=== PATIENT | female | born 1965 | race Caucasian/White ===

== ENCOUNTER 2022-06-02 04:36 | Observation (INO) | payer OTHER ==
[2022-06-02] MEDS ORDERED: morphine SULFATE 4 MG/ML VIAL IVPUSH ONE (06:10)
[2022-06-02 06:42] LABS: ALBUMIN 4.1 g/dl (3.4-5.0); ALK PHOS 124 U/L (45-117); BILIRUBIN,TOTAL 0.5 mg/dL (0.2-1); BLOOD UREA NITROGEN 26.2 mg/dL (7-18); CALCIUM 9.7 mg/dL (8.5-10.1); CHLORIDE 102 mmol/L (98-107); CO2 26 mmol/L (21-32); CREATININE 1.2 mg/dL (0.55-1.3); GLUCOSE,RANDOM 247 mg/dL (74-106); LIPASE 78 U/L (73-393); SGOT/AST 29 U/L (15-37); SGPT/ALT 30 U/L (13-61); SODIUM 139 mmol/L (136-145); TOT PROT 7.8 g/dl (6.4-8.2)
[2022-06-02 06:59] LABS: VENOUS BASE EXCESS -1.3 mmol/L (-2-2); VENOUS O2 SATURATION 39.5 % (70-80); VENOUS PCO2 50.8 mmHg (38-52)
[2022-06-02 07:01] LABS: VENOUS PH 7.319 (7.310-7.410)
[2022-06-02 07:14] LABS: HEMOGLOBIN 14.7 GM/dL (10.7-15.3); MCH 25.6 pg (25.7-33.7); MEAN PLT VOLUME 10.2 fl (7.5-11.1); PLATELET COUNT 376 10^3/uL (134-434); RBC 5.75 M/mm3 (3.60-5.2); RDW 13.8 % (11.6-15.6); WHITE BLOOD COUNT 20.4 K/mm3 (4.0-10.0)
[2022-06-02 08:52] LABS: ANISOCYTOSIS 0; HELMET CELLS 0; HOWELL-JOLLY BODIES 0; MACROCYTOSIS 0; OVALOCYTE 0; ROULEAU 0; SICKELED CELLS 0; TARGET CELLS 0; TEAR DROP CELLS 0; TOXIC GRANULATION 0
[2022-06-02 09:40] LABS: PH,URINE 5.5 (5.0-8.0); URINE APPEARANCE CLEAR; URINE BILIRUBIN NEGATIVE (NEGATIVE); URINE COLOR YELLOW; URINE KETONE NEGATIVE (NEGATIVE); URINE PROTEIN NEGATIVE (NEGATIVE); URINE UROBILINOGEN 0.2 mg/dL (0.2-1.0)
[2022-06-02 09:41] LABS: URINE LEUK ESTERASE NEGATIVE (NEGATIVE); URINE NITRITE NEGATIVE (NEGATIVE)
[2022-06-02] MEDS ORDERED: DEXTROSE 5%-0.45% SALINE 1,000 ML IV SCH (10:15)
[2022-06-02] MEDS ORDERED: ONDANSETRON 4 MG/2 ML VIAL IVPUSH PRN (12:10)
[2022-06-02] MEDS ORDERED: DEXTROSE 5%-LACTATED RINGERS 1,000 ML IV SCH (12:15)
[2022-06-02] MEDS ORDERED: ACETAMINOPHEN 1000 MG/100 ML BAG IVPB PRN (12:20)
[2022-06-02] MEDS ORDERED: SODIUM CHLORIDE 0.45% 1,000 ML IV SCH (13:15)
[2022-06-02] MEDS: ENOXAPARIN NA (PORCINE) 40 MG/0.4 ML DISP.SYRIN SQ SCH (15:20)
[2022-06-02 16:11] VITALS: BMI 27.8
[2022-06-02] MEDS: INSULIN SLIDING SCALE (NOVOLOG) 1 VIAL SQ SCH ×2 (16:31→23:08)
[2022-06-02] MEDS ORDERED: CEFTRIAXONE 1 GM in DEXTROSE 5%-WATER - 50 ML IVPB ONE (16:37)
[2022-06-02 21:15] VITALS: RESP 20
[2022-06-03] MEDS: INSULIN SLIDING SCALE (NOVOLOG) 1 VIAL SQ SCH ×2 (07:09→12:20)
[2022-06-03] MEDS: ENOXAPARIN NA (PORCINE) 40 MG/0.4 ML DISP.SYRIN SQ SCH (09:13)
[2022-06-03] MEDS ORDERED: ACETAMINOPHEN 500 MG TABLET (FP) PO PRN (09:29)
[2022-06-03 11:11] LABS: BASO % 0.3 % (0-2.0); EOS % 1.9 % (0-4.5); HEMATOCRIT 37.4 % (32.4-45.2); HEMOGLOBIN 11.9 GM/dL (10.7-15.3); MCH 25.3 pg (25.7-33.7); MCHC 31.9 g/dl (32.0-36.0); MEAN CELL VOLUME 79.5 fl (80-96); MEAN PLT VOLUME 9.2 fl (7.5-11.1); MONO % 7.3 % (3.8-10.2); NEUT % 62.5 % (42.8-82.8); PLATELET COUNT 324 10^3/uL (134-434); RDW 13.9 % (11.6-15.6); WHITE BLOOD COUNT 13.4 K/mm3 (4.0-10.0)
[2022-06-03 11:50] LABS: BLOOD UREA NITROGEN 14.3 mg/dL (7-18); CALCIUM 8.9 mg/dL (8.5-10.1); MAGNESIUM 2.3 mg/dL (1.8-2.4); PHOSPHOROUS 2.8 mg/dL (2.5-4.9)
[2022-06-03 11:51] LABS: BILIRUBIN,TOTAL 0.2 mg/dL (0.2-1)
[2022-06-03] MEDS ORDERED: INSULIN (NOVOLOG) ASPART 100 UNITS/ML 10ML VIAL ONE (12:04)
[2022-06-03 16:09] VITALS: BP 105/57; PULSE 74; TEMP 98.8
== END 2022-06-03 16:14 | disposition home or self-care (01) ==
LOC: JER 04:36 → JERBED 11:30 → J8W 14:39
PROVIDERS: ADMIT Internal Medicine; ATTEND Family Medicine
PROC: 3E03329 Introduction of Other Anti-infective into Peripheral Vein, Percutaneous Approach (ICD-10-PCS; principal; 2022-06-02)
PROC: 3E033GC Introduction of Other Therapeutic Substance into Peripheral Vein, Percutaneous Approach (ICD-10-PCS; 2022-06-02)
PROC: 3E023GC Introduction of Other Therapeutic Substance into Muscle, Percutaneous Approach (ICD-10-PCS; 2022-06-02)
PROC: 3E013VG Introduction of Insulin into Subcutaneous Tissue, Percutaneous Approach (ICD-10-PCS; 2022-06-02)
PROC: 3E0337Z Introduction of Electrolytic and Water Balance Substance into Peripheral Vein, Percutaneous Approach (ICD-10-PCS; 2022-06-02)
DX: Z29.8 Encounter for other specified prophylactic measures (principal); E03.9 Hypothyroidism, unspecified; E11.9 Type 2 diabetes mellitus without complications; I10 Essential (primary) hypertension; E78.5 Hyperlipidemia, unspecified; K52.9 Noninfective gastroenteritis and colitis, unspecified; D72.829 Elevated white blood cell count, unspecified
CPT/HCPCS: 36415; 71045-TC-FY; 74177-TC; 80053; 81003; 82803; 82962; 83690; 83735; 84100; 84484; 85025; 87040; 87086; 93005; 93010; 96365; 96367; 96372; 99285-25; C9803-CS; G0378; Q9967; U0003; U0005